=== PATIENT | male | born 1950 | race African-American/Black ===

== ENCOUNTER 2019-09-18 13:37 | Emergency (ER) | payer MEDICARE, OTHER ==
[~2019-09-18] VITALS: Ht 177.8 cm; Wt 90.7 kg
--- NOTE | 2019-09-18 13:37 | NUR ---
PT BIB [facility] 881 FROM A LOCAL BANK, C/O RIGHT LEG PAIN. PT IS AAOX4, NOT IN RESPIRATORY DISTRESS, V/S STABLE, KEPT RESTED AND COMFORTABLE. WILL CONTINUE TO MONITOR.
--- NOTE | 2019-09-18 13:54 | NUR ---
DALIA CORDERO CALLED AT [phone],SPOKE WITH DAYANA REYES, HE WILL COME AND PICK HIM UP WHEN HE'S DISCHARGED
--- NOTE | 2019-09-18 14:34 | NUR ---
AT BEDSIDE FOR EVAL.
--- NOTE | 2019-09-18 14:45 | NUR ---
PT IS WHEELED TO CT SCAN VIA [facility].
[2019-09-18] MEDS ORDERED: KETOROLAC TROMETHAMINE INJ 60 MG/2 ML VIAL IM ONE ×2 (14:59→15:00)
--- NOTE | 2019-09-18 15:38 | NUR ---
CALLED [facility] AND SPOKE TO ERIC. GAVE HIM ADDRESS INFORMATION AND WILL PICK HIM UP IN ABOUT 30-45 MINUTES.
--- NOTE | 2019-09-18 16:20 | NUR ---
Patient discharged to home in stable condition. Written and verbal after care instructions given. Patient verbalizes understanding of instruction.
[2019-09-18 16:21] VITALS: BP 127/81
== END 2019-09-18 16:21 ==
LOC: ER 13:46
DX: S90.31XA Contusion of right foot, initial encounter (principal); M54.41 Lumbago with sciatica, right side; G89.29 Other chronic pain; W22.8XXA Striking against or struck by other objects, initial encounter; Y93.89 Activity, other specified; Y92.89 Other specified places as the place of occurrence of the external cause; Y99.8 Other external cause status
CPT/HCPCS: 72131; 73630; 96372; 99284; J1885

== ENCOUNTER 2020-06-04 14:24 | Emergency (ER) | payer MEDICARE, OTHER ==
[~2020-06-04] VITALS: Ht 177.8 cm; Wt 88.5 kg
--- NOTE | 2020-06-04 15:06 | NUR ---
XRAY DONE AT BEDSIDE. [facility]
--- NOTE | 2020-06-04 15:10 | NUR ---
BIBCAREGIVER TO ER BED 1. AAOX3. NOT IN RESP DISTRESS, BREATHING EVEN AND UNLABORED. PT WAS SENT BY HIS PCP D/T A PROGRESSIVELY WORSENING VISION LOSS ON HIS LEFT EYE. PER CAREGIVER THE VISION LOSS STARTED BACK IN APRIL. 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 PT IS ABLE TO SHADOW AND COLOR. WAS AT THE BEDSIDE FOR EVAL. ORDERS RECEIVED, NOTED AND CARRIED OUT
[2020-06-04] MEDS ORDERED: CLON2TAB11 PO (15:23)
[2020-06-04] MEDS ORDERED: CHOL100062 PO (15:23)
[2020-06-04] MEDS ORDERED: DONE10TA44 PO (15:23)
[2020-06-04] MEDS ORDERED: QUET100T PO (15:23)
[2020-06-04] MEDS ORDERED: TRAZ-252 PO (15:23)
[2020-06-04] MEDS ORDERED: DIPH25CA51 PO (15:23)
[2020-06-04] MEDS ORDERED: PARO20TA7 PO (15:23)
[2020-06-04] MEDS ORDERED: GLIP5TAB13 PO (15:23)
[2020-06-04] MEDS ORDERED: METF-881 PO (15:23)
[2020-06-04 15:30] LABS: BASOPHILS % (AUTO) 0.5 % (0.0-2.0); EOSINOPHILS % (AUTO) 2.4 % (0.0-6.0); HEMATOCRIT 45 % (39-51); HEMOGLOBIN 14.8 g/dL (13.5-17.5); LYMPHOCYTES % (AUTO) 32.7 % (20.0-44.0); MEAN CORPUSCULAR HGB CONC 33 g/dl (31.0-36.0); MEAN CORPUSCULAR VOLUME 90 fL (80-96); MONOCYTES # (AUTO) 0.7 /CMM (0.1-1.30); MONOCYTES % (AUTO) 7.7 % (2.0-12.0); NEUTROPHILS # (AUTO) 5.1 /CMM (1.8-8.9); NEUTROPHILS % (AUTO) 56.7 % (43.0-81.0); PLATELET COUNT (AUTO) 291 /CMM (150-450); RED BLOOD CELL COUNT(AUTO) 5.08 MIL/uL (4.5-6.0)
--- NOTE | 2020-06-04 15:49 | NUR ---
COVID SWAB DONE AND SENT TO LAB
[2020-06-04 16:01] LABS: CALCIUM, SERUM 9.2 mg/dL (8.5-10.1); CARBON DIOXIDE 28 mmol/L (21-32); CHLORIDE 105 mmol/L (98-107); CREATININE 1.3 mg/dL (0.6-1.3); GLUCOSE 99 mg/dL (74-106); POTASSIUM 4.1 mmol/L (3.5-5.1); SODIUM SERUM 139 mmol/L (136-145)
[2020-06-04 16:29] LABS: UREA NITROGEN, BLOOD 14 mg/dL (7-18)
[2020-06-04] MEDS ORDERED: clonazePAM 1 MG TABLET ONE (16:32)
[2020-06-04 16:46] LABS: CHOLESTEROL 107 mg/dL (<200); HDL CHOLESTEROL 35 mg/dL (40-60); LDL 43 mg/dL (0-99); TRIGLYCERIDES 306 mg/dL (30-150)
--- NOTE | 2020-06-04 16:48 | NUR ---
[facility] CALLED AUTO RESEARCH ENGINEER PAGED.
[2020-06-04] MEDS ORDERED: clonazePAM 1 MG TABLET PO ONE (17:00)
--- NOTE | 2020-06-04 17:11 | NUR ---
[facility] [phone] FACILITY WORKFORCE MANAGEMENT CONSULTANT
--- NOTE | 2020-06-04 17:31 | NUR ---
GOT BED 103
--- NOTE | 2020-06-04 18:12 | NUR ---
[facility] [phone] [facility] [id number] LOOKING TO TRANSFER FAXING FACE SHEET [phone]
--- NOTE | 2020-06-04 18:35 | NUR ---
[facility] [phone] NO BEDS AT THIS TIME PER LAURA.
--- NOTE | 2020-06-04 18:49 | NUR ---
[facility] OPHTHALMOLOGY
--- NOTE | 2020-06-04 18:52 | NUR ---
[facility] LINE
--- NOTE | 2020-06-04 18:57 | NUR ---
CALLED [facility] AND [place] [facility] [place]
--- NOTE | 2020-06-04 18:58 | NUR ---
MYRA SPOKE WITH ZANA HE FORWARDED PT INFO TO THE 3 PLACES THAT HAVE OPHTHAMOLOGY [facility], [facility], AND [facility]. SHOULD BE GETTING A CALL BY 1944.
--- NOTE | 2020-06-04 19:15 | NUR ---
SPOKE WITH KARINA FROM [facility] AND INFORMED THAT THERE IS NO BED CAPACITY FOR THE PATIENT.
--- NOTE | 2020-06-04 19:30 | NUR ---
REC'D REPORT FROM MARTÍN LEONARD FOR ROBERT. PT RESTING IN BED, APPEARS RESTLESS. MD AWARE. STILL ON MONITOR, WILL CONTINUE TO MONITOR
--- NOTE | 2020-06-04 19:34 | NUR ---
Call from lab. Rapid covid negative.
[2020-06-04] MEDS ORDERED: OLANZAPINE 10 MG VIAL IM ONE ×2 (20:00→20:08)
--- NOTE | 2020-06-04 20:00 | NUR ---
WANDA, CHECKER AND PACKER OF THE FACILTY IMFORMED THAT THERE IS STILL NO BED AVAILABILITY.
--- NOTE | 2020-06-04 20:13 | NUR ---
CALLED [facility], FAXED FACESHEET AND CLINICALS TO [facility], AWAITING CALL BACK
--- NOTE | 2020-06-04 20:29 | NUR ---
DR HAGEN SPEAKING WITH [facility] OPTHALMOLOGIST
--- NOTE | 2020-06-04 20:49 | NUR ---
TEXTED DR. MURRIETA FOR MRI APPROVAL.
--- NOTE | 2020-06-04 21:05 | NUR ---
[facility] CALLED FOR HIGHER LEVEL OF CARE. NO SKATE BOARDER OPTHALMOLOGY
--- NOTE | 2020-06-04 21:15 | NUR ---
[facility] called for higherl level of care. No beds available.
--- NOTE | 2020-06-04 21:22 | NUR ---
[facility] called for higher level of care. No diagnostic medical sonographer opthalmalogy.
--- NOTE | 2020-06-04 21:45 | NUR ---
[facility] called for higher level of care. No opthalmalogy
--- NOTE | 2020-06-04 22:44 | NUR ---
PT SLEEPING COMFORTABLY IN BED. VITAL SIGNS STABLE. WILL CONTINUE TO MONITOR
--- NOTE | 2020-06-05 02:28 | NUR ---
PT SLEEPING COMFORTABLY IN BED, EASILY AROUSABLE. VITAL SIGNS STABLE. NO ACUTE DISTRESS NOTED AT THIS TIME. WILL CONTINUE TO MONITOR
--- NOTE | 2020-06-05 05:58 | NUR ---
PT RESTING COMFORTABLY IN BED. VITAL SIGNS STABLE. WILL CONTINUE TO MONITOR
[2020-06-05] MEDS ORDERED: QUETIAPINE FUMARATE 100 MG TABLET PO STA (06:40)
[2020-06-05] MEDS ORDERED: IOHEXOL-350 100 ML VIAL IV ONE (07:07)
[2020-06-05] MEDS ORDERED: CT SWABBABLE VALVE TRANS SET 1 EA INFUS.SET MC ONE (07:08)
[2020-06-05] MEDS ORDERED: IV NS 0.9% 250 ML IV ONE (07:08)
--- NOTE | 2020-06-05 07:24 | NUR ---
REPORT GIVEN TO MARTÍN DENNISON FOR ROBERT
--- NOTE | 2020-06-05 07:25 | NUR ---
Received the patient in er bed #11. Denies pain. In room air and denies SOB. Respiration regular and unlabored. Will continue to monitor.
[2020-06-05] MEDS ORDERED: LORAZEPAM 0.5 MG TABLET ONE (09:47)
[2020-06-05] MEDS ORDERED: LORAZEPAM INJ 2 MG/ML VIAL IV ONE (10:00)
--- NOTE | 2020-06-05 13:42 | NUR ---
Dr. Wagner called and speaking to Dr. Davis.
--- NOTE | 2020-06-05 15:33 | NUR ---
CALLED [facility] TO TRANSPORT PATIENT TO CARE CENTER. ETA 30 MINUTES.
--- NOTE | 2020-06-05 16:17 | NUR ---
Patient discharged to his care facility in stable condition. Written and verbal after care instructions given. The patient left ER in stable condition via arranged transpo.
[2020-06-05 16:18] VITALS: BP 111/63
== END 2020-06-05 16:25 ==
LOC: ER 14:26
DX: H54.62 Unqualified visual loss, left eye, normal vision right eye (principal); E78.1 Pure hyperglyceridemia; Z20.822 Contact with and (suspected) exposure to COVID-19; H27.10 Unspecified dislocation of lens; F79 Unspecified intellectual disabilities; Z79.899 Other long term (current) drug therapy; G89.29 Other chronic pain; E11.9 Type 2 diabetes mellitus without complications; Z79.84 Long term (current) use of oral hypoglycemic drugs
CPT/HCPCS: 36415; 70450; 70496; 70498; 71045; 80048; 80061; 82962; 84484; 85025; 85730; 87081; 87426; 93005; 96372; 96374; 99291; J3490; J7050; Q9967; C9803; U0003